=== PATIENT | female | born 1950 | race Caucasian/White ===

== ENCOUNTER 2018-10-13 22:20 | Emergency (ER) | payer MEDICARE, OTHER ==
--- NOTE | 2018-10-13 22:24 | ED Physician Documentation ---
General Adult - HISTORIAN Historian: patient - HPI Stated Complaint: bug bite she is concerned was a tick bite Chief Complaint: Insect Bite Onset: days ago (3) Timing: still present Severity: mild Further Comments: yes (She reports noting a bite of some sort on her right upper leg. [place] and her ring around the area concerned her for a possible tick issue. Denies any pain, not itching no drainge. She did not see a tick. No other complaints) Last known Well Code/Unknown Code: Unknown - ROS CONST: no problems - PAST HX Past History: other (arthritis ) Immunizations: UTD Allergies/Adverse Reactions: Allergies Allergy/AdvReac Type Severity Reaction Status Date / Time No Known Allergies Allergy Verified 10/13/18 22:41 Home Medications: Ambulatory Orders Medication Instructions Recorded Acetaminophen 325 mg PO Q4 02/29/16 Ondansetron [Ondansetron Odt] 4 mg PO Q8 PRN 02/29/16 Oxycodone HCl [Oxycontin] 10 mg PO DAILY 02/29/16 - SOCIAL HX Smoking History: cigarettes Alcohol Use: none Drug Use: none - FAMILY HX Family History: No - VITAL SIGNS Vital Signs: Vital Signs Temp Pulse Resp BP Pulse Ox 83/39 02/29/16 07:21 - REVIEWED ASSESSMENTS Nursing Assessment Reviewed: Yes Vitals Reviewed: Yes General Adult Physical Exam - PHYSICAL EXAM GENERAL APPEARANCE: no distress EENT: eye inspection normal, no signs of dehydration NECK: normal inspection RESPIRATORY: no resp distress, chest non-tender, breath sounds normal CVS: reg rate & rhythm, heart sounds normal ABDOMEN: soft, no distension BACK: normal inspection SKIN: warm/dry, other (small less than 1 cm round area with mild red ring around site - no drainage. No obvious tick. No pain. No streaking ) EXTREMITIES: non-tender, normal range of motion, no evidence of injury, no edema NEURO: oriented X3 Discharge Clincal Impression: Tick bite Qualifiers: Encounter type: initial encounter Qualified Code(s): W57.XXXA - Bitten or stung by nonvenomous insect and other nonvenomous arthropods, initial encounter Referrals: Primary Doctor,No [Primary Care Provider] - 2 Days Comments: 1. Doxycycline 100 mg take 1 by mouth twice per day x 10 days 2. Return call in one week for follow up on tick profile 3. Follow up with PCP Tuesday 4. Return to ER for any increasing concerns Condition: Stable Disposition: 01 HOME, SELF-CARE Decision to Admit: NO Date of Decison to Admit: 10/13/18 Decision Time: 23:20
[2018-10-13 22:48] VITALS: BP 161/55
[2018-10-13] MEDS ORDERED: DOXYCYCLINE 100 MG CAPSULE PO ONE (23:15)
== END 2018-10-13 23:46 | disposition home or self-care (01) ==
LOC: ED 22:20
DX: S70.361A Insect bite (nonvenomous), right thigh, initial encounter (principal); W57.XXXA Bitten or stung by nonvenomous insect and other nonvenomous arthropods, initial encounter; Y99.8 Other external cause status
CPT/HCPCS: 86618; 86666; 86757; 99282